=== PATIENT | male | born 1985 | race Hispanic/Latino ===

== ENCOUNTER 2023-09-19 16:34 | Emergency (ER) | payer OTHER | END 2023-09-19 17:15 | disposition home or self-care (01) | LOC: MADERS 16:34 | DX: B30.9 Viral conjunctivitis, unspecified (principal); Z55.6 Problems related to health literacy | CPT/HCPCS: 99282 ==

== ENCOUNTER 2025-03-29 10:51 | Emergency (ER) | payer OTHER | END 2025-03-29 11:29 | disposition home or self-care (01) | LOC: MADERS 10:51 | DX: H60.91 Unspecified otitis externa, right ear (principal) | CPT/HCPCS: 99282 ==